=== PATIENT | male | born 1940 | race Asian ===

== ENCOUNTER 2016-07-20 09:54 | Inpatient (IN) | payer OTHER ==
[2016-07-18 17:28] LABS: BASOPHIL % 0.7 % (0-2); PLATELET COUNT 253 x10^3mcL (130-400)
[2016-07-18 17:38] LABS: RED CELL DISTRIBUTION WIDTH 27.1 % (11.5-14.5)
[2016-07-18 17:42] LABS: ALBUMIN 3.4 g/dL (3.4-5.0); ALKALINE PHOSPHATASE 80 U/L (46-116); ALT/SGPT 34 U/L (16-63); AST/SGOT 21 U/L (15-37); BILIRUBIN TOTAL 0.18 mg/dL (0.20-1.00); CALCIUM 8.8 mg/dL (8.5-10.1); CARBON DIOXIDE 27.1 mmol/L (21-32); CHLORIDE SERUM 101 mmol/L (98-107); CHOLESTEROL 135 mg/dL (<200); CREATININE SERUM 1.3 mg/dL (0.7-1.3); GLUCOSE SERUM 149 mg/dL (74-106); LACTIC DEHYDROGENASE (LDH) 188 U/L (100-190); PHOSPHOROUS 3.4 mg/dL (2.5-4.9); SODIUM SERUM 137 mmol/L (136-145); TOTAL PROTEIN, SERUM 7.3 g/dL (6.4-8.2); URIC ACID 5.5 mg/dL (3.5-7.2)
[2016-07-18 18:18] LABS: rbc morphology (normal/abnorm) ABNORMAL (NORMAL)
[2016-07-18 18:19] LABS: ovalocyte/elliptocyte 1+
[~2016-07-20] VITALS: Ht 170.2 cm; Wt 67.4 kg
[2016-07-20 10:31] VITALS: BP 197/84
[2016-07-20] MEDS ORDERED: CARVEDILOL12.5 M1 PO (16:00)
[2016-07-20] MEDS ORDERED: ENALAPRIL MALEA20 MG PO (16:00)
[2016-07-20] MEDS ORDERED: ATORVASTATIN CA40 M1 PO (16:00)
[2016-07-20 16:58] VITALS: BP 119/80; BP 199/80
[2016-07-20 17:37] LABS: MAGNESIUM 1.9 mg/dL (1.8-2.4)
[2016-07-20 17:47] LABS: T3 TOTAL 1.07 ng/mL
[2016-07-20 18:08] LABS: FREE T4 1.37 ng/dL (0.76-1.46); FREE THYROXINE INDEX 3.5 ug/dL (1.4-4.5); T4(THYROXINE) 8.7 ug/dL (4.7-13.3)
[2016-07-20 18:20] VITALS: BP 179/91
[2016-07-20 18:34] LABS: microscopic required? YES; urine erythrocyte 1+ (NEGATIVE)
[2016-07-20 21:15] VITALS: BP 146/53
[2016-07-21 05:32] VITALS: BP 140/55
[2016-07-21 06:18] LABS: PLATELET COUNT 233 x10^3mcL (130-400)
[2016-07-21 06:23] LABS: CHLORIDE SERUM 104 mmol/L (98-107); CREATININE SERUM 1.3 mg/dL (0.7-1.3); GLUCOSE SERUM 137 mg/dL (74-106); MAGNESIUM 2.1 mg/dL (1.8-2.4); PHOSPHOROUS 4.5 mg/dL (2.5-4.9); POTASSIUM SERUM 4.2 mmol/L (3.5-5.1); SODIUM SERUM 137 mmol/L (136-145)
[2016-07-21 07:08] LABS: BASOPHIL % 0 % (0-2); RED CELL DISTRIBUTION WIDTH 25.4 % (11.5-14.5)
[2016-07-21 07:09] LABS: ovalocyte/elliptocyte 1+; rbc morphology (normal/abnorm) ABNORMAL (NORMAL); schistocyte (helmet cell) 1+; target cell (codocyte) 1+
[2016-07-21 09:53] VITALS: BP 159/59
[2016-07-21 12:06] VITALS: Ht 170.2 cm; Wt 67.4 kg
[2016-07-21 13:59] VITALS: BP 131/41
[2016-07-21 18:00] VITALS: BP 154/39
[2016-07-21 21:14] VITALS: BP 129/47
[2016-07-22 05:44] VITALS: BP 163/68
[2016-07-22 06:34] LABS: PLATELET COUNT 216 x10^3mcL (130-400)
[2016-07-22 06:51] LABS: CALCIUM 8.3 mg/dL (8.5-10.1); CARBON DIOXIDE 24.7 mmol/L (21-32); CHLORIDE SERUM 105 mmol/L (98-107); CREATININE SERUM 1.2 mg/dL (0.7-1.3); GLUCOSE SERUM 104 mg/dL (74-106); MAGNESIUM 2.1 mg/dL (1.8-2.4); PHOSPHOROUS 3.2 mg/dL (2.5-4.9); SODIUM SERUM 139 mmol/L (136-145)
[2016-07-22 06:54] LABS: ALBUMIN 2.8 g/dL (3.4-5.0)
[2016-07-22 06:55] LABS: RED CELL DISTRIBUTION WIDTH 26.6 % (11.5-14.5)
[2016-07-22 07:33] LABS: BASOPHIL % 0 % (0-2)
[2016-07-22 10:14] VITALS: BP 110/53
[2016-07-22 15:42] VITALS: BP 125/65
[2016-07-22 19:17] VITALS: BP 135/81
[2016-07-22 20:04] VITALS: BP 126/63
[2016-07-23 05:31] VITALS: BP 113/74
[2016-07-23 06:19] LABS: BASOPHIL % 0.1 % (0-2); PLATELET COUNT 218 x10^3mcL (130-400)
[2016-07-23 06:47] LABS: RED CELL DISTRIBUTION WIDTH 25.6 % (11.5-14.5)
[2016-07-23 06:58] LABS: CALCIUM 8.2 mg/dL (8.5-10.1); CARBON DIOXIDE 25.4 mmol/L (21-32); CHLORIDE SERUM 106 mmol/L (98-107); CREATININE SERUM 1.1 mg/dL (0.7-1.3); GLUCOSE SERUM 111 mg/dL (74-106); MAGNESIUM 1.9 mg/dL (1.8-2.4); PHOSPHOROUS 3.3 mg/dL (2.5-4.9); POTASSIUM SERUM 3.8 mmol/L (3.5-5.1); SODIUM SERUM 138 mmol/L (136-145)
[2016-07-23 10:00] VITALS: BP 190/70
[2016-07-23 13:22] VITALS: BP 142/52
[2016-07-23 20:36] VITALS: BP 128/71
[2016-07-24 06:34] VITALS: BP 182/75
[2016-07-24 06:48] LABS: BASOPHIL % 0.2 % (0-2); PLATELET COUNT 238 x10^3mcL (130-400)
[2016-07-24 06:49] LABS: RED CELL DISTRIBUTION WIDTH 25.3 % (11.5-14.5)
[2016-07-24 07:11] LABS: CALCIUM 8.5 mg/dL (8.5-10.1); CARBON DIOXIDE 25.7 mmol/L (21-32); CHLORIDE SERUM 106 mmol/L (98-107); CREATININE SERUM 1.1 mg/dL (0.7-1.3); GLUCOSE SERUM 117 mg/dL (74-106); MAGNESIUM 1.6 mg/dL (1.8-2.4); PHOSPHOROUS 4.2 mg/dL (2.5-4.9); POTASSIUM SERUM 3.8 mmol/L (3.5-5.1); SODIUM SERUM 141 mmol/L (136-145)
[2016-07-24 07:15] VITALS: BP 179/71
[2016-07-24 07:45] LABS: rbc morphology (normal/abnorm) ABNORMAL (NORMAL)
[2016-07-24 07:46] LABS: ovalocyte/elliptocyte 1+; schistocyte (helmet cell) 1+; target cell (codocyte) 1+
[2016-07-24 09:25] VITALS: BP 161/64
[2016-07-24 10:45] VITALS: BP 148/57
[2016-07-24 15:08] VITALS: BP 148/57
[2016-07-24] MEDS ORDERED: NORCO1 TA2 PO (15:36)
== END 2016-07-24 15:59 | disposition home or self-care (01) | DRG 329 ==
LOC: DU 09:54 → MU 09:54 → DU 12:00 → MU 07-23 12:37
PROVIDERS: Family Medicine; Surgery; ADMIT Family Medicine
PROC: 0DBN4ZZ Excision of Sigmoid Colon, Percutaneous Endoscopic Approach (ICD-10-PCS; principal; 2016-07-20 12:00)
DX: C20 Malignant neoplasm of rectum (principal); I50.43 Acute on chronic combined systolic (congestive) and diastolic (congestive) heart failure; N17.0 Acute kidney failure with tubular necrosis; D68.69 Other thrombophilia; I11.0 Hypertensive heart disease with heart failure; I16.0 Hypertensive urgency; E11.65 Type 2 diabetes mellitus with hyperglycemia; I25.10 Atherosclerotic heart disease of native coronary artery without angina pectoris; D50.9 Iron deficiency anemia, unspecified; E78.5 Hyperlipidemia, unspecified; Z68.23 Body mass index [BMI] 23.0-23.9, adult; Z95.1 Presence of aortocoronary bypass graft; Z86.73 Personal history of transient ischemic attack (TIA), and cerebral infarction without residual deficits
CPT/HCPCS: 82962; 83880; 84439; 94150; 97116-GP; 97530-GP; J0330; J0360; J0690; J0694; J1170; J1644; J2405; J2710; J3010; J3490; J7030; J7042; J7120; Q0092